=== PATIENT | male | born 2005 | race Two or more races ===

== ENCOUNTER 2025-02-28 12:25 | Emergency (ER) | payer SELFPAY ==
[~2025-02-28] VITALS: Ht 175.3 cm; Wt 103.5 kg
[2025-02-28 13:31] VITALS: BP 133/83; PULSE 76; RESP 14; TEMP 98; O2SAT 96
[2025-02-28] MEDS ORDERED: DEX4T PO (15:20)
[2025-02-28] MEDS ORDERED: CYCL-839 PO (15:20)
--- NOTE | 2025-02-28 15:20 | ED.PDOC ---
Back pain HPI Chief Complaint: Back Pain Time Seen by MD: 13:38 Allergies: Coded Allergies: NO KNOWN ALLERGIES (Unverified , 04/04/11) Home Meds Active Scripts Cyclobenzaprine Hcl (Cyclobenzaprine Hcl) 10 Mg Tab, 10 MG PO T.i.d. for 10 Days, #30 TAB Prov:CJ SLATER MD 02/28/25 Dexamethasone (Decadron) 4 Mg Tb, 4 MG PO BID for 5 Days, #10 TAB Prov:CJ SLATER MD 02/28/25 Mode of Arrival: Ambulatory Social History Lives In: Home Physical Exam General Appearance: Mild Distress, Moderate Distress HEENT: Normal ENT Inspection, PERRL/EOMI Neck: Full Range of Motion, Non-Tender, Normal, Normal Inspection Respiratory: Chest Non-Tender, Lungs Clear, No Accessory Muscle Use, No Respiratory Distress, Normal Breath Sounds Cardiovascular: No Edema, No JVD, No Murmur, No Gallop, Normal Peripheral Pulses, Regular Rate/Rhythm Breast Exam: Deferred Gastrointestinal: No Organomegaly, Non Tender, No Pulsatile Mass, Normal Bowel Sounds, Soft Genitalia: Deferred Pelvic: Deferred Rectal: Deferred Extremities: No calf tenderness, Normal capillary refill, Normal inspection, Normal range of motion, No pedal edema, Tender (From the right side of the bag down to the lateral foot) Musculoskeletal : Location: Right Extremity Location: Back Apperance: Limited ROM, Tenderness: Moderate, Other (With radiculopathy to the right leg) Neurologic: Alert, Normal Affect, Normal Mood Cerebellar Function: Normal Reflexes: Normal Skin: Dry, Normal Color, Warm Peripheral Pulses: 1+ carotid (R), 1+ carotid (L) Lymphatic: No Adenopathy Was a procedure done? Was a procedure done?: No Back Pain Differential Dx Differential Diagnosis: Musculoskeletal Pain (Radiculopathy), Other (Radiculopathy) X-Ray, Labs, Meds, VS Vital Signs Date Time Temp Pulse Resp B/P (MAP) Pulse Ox O2 Delivery O2 Flow Rate FiO2 02/28/25 13:31 76 14 96 Room Air* 0 21 02/28/25 13:31 98.0 76 14 133/83 (100) 96 98.0 02/28/25 12:45 98.6 79 16 137/92 (107) 98 98.6 X-Ray, Labs, Meds, VS Comment Seen in the emergency department eventful patient came in complaining of low back pain on the right with a radiculopathy to the entire leg down to the foot In July pressure patient had injury to the back and has been treated for workmen's comp and discharged lately he starting having the same issue and now the the radiation is going down all the way to the foot Time of 1ST Reevaluation: 13:38 Reevaluation 1ST: Unchanged Time of 2ND Reevaluation: 15:20 Reevaluation 2ND: Improved Consultation: PCP Patient Education/Counseling: Diagnosis, Treatment, Prognosis, Need For Follow Up Family Education/Counseling: Diagnosis, Treatment, Prognosis, Need For Follow Up Departure 1 Departure Time of Disposition: 15:13 Impression: Primary Impression: Lumbar radiculopathy Additional Impression: Musculoskeletal pain Disposition: HOME / SELF CARE / HOMELESS Condition: Fair Additional Instructions: Hot shower and follow up with an orthopedist e-Prescriptions Cyclobenzaprine Hcl (Cyclobenzaprine Hcl) 10 Mg Tab 10 MG PO T.i.d. for 10 Days, #30 TAB Prov: CJ SLATER MD 02/28/25 Dexamethasone (Decadron) 4 Mg Tb 4 MG PO BID for 5 Days, #10 TAB Prov: CJ SLATER MD 02/28/25 Discharged With: Self Critical Care Note Critical Care Time?: No Stability Stability form required: No Heart Score Heart Score: Heart Score Response (Comments) Value History N/A 0 EKG N/A 0 Age <45 0 Risk Factors No known risk factors 0 Troponin N/A 0 Total 0 CJ SLATER MD Feb 28, 2025 15:20
== END 2025-02-28 15:25 | disposition home or self-care (01) ==
LOC: ER 12:25
DX: M54.16 Radiculopathy, lumbar region (principal); M79.18 Myalgia, other site